=== PATIENT | female | born 1955 | race Caucasian/White ===

== ENCOUNTER → 2016-12-11 | Outpatient (CLI) | payer BC | LOC: RAD 13:04 | DX: Z12.31 Encounter for screening mammogram for malignant neoplasm of breast (principal) ==

== ENCOUNTER 2019-06-30 10:35 | Emergency (ER) | payer OTHER ==
[~2019-06-30] VITALS: Ht 157.5 cm; Wt 71.2 kg
[2019-06-30 12:17] VITALS: BP 136/72
== END 2019-06-30 12:18 | disposition home or self-care (01) ==
LOC: ER 10:35
DX: R05 Cough (principal); R68.83 Chills (without fever); G62.9 Polyneuropathy, unspecified